=== PATIENT | female | born 1985 | race Caucasian/White ===

== ENCOUNTER 2022-01-29 12:35 | Inpatient (IN) | payer OTHER ==
[~2022-01-29 12:35] MED LIST: Bupivacaine PF 0.5% 30 ML VIAL ONE; Bupivacaine/Epinephrine 0.25% 30 ML VIAL ONE
[2022-01-29 12:55] VITALS: BMI 41.8
[2022-01-29] MEDS ORDERED: Misoprostol 200 MCG TAB PR PRN (13:28)
[2022-01-29] MEDS ORDERED: HYDROcodone/Acetaminophen 5/325 mg Tablet PO PRN ×2 (13:28)
[2022-01-29] MEDS ORDERED: Lidocaine 1% (PF) 30 ML VIAL SC PRN (13:28)
[2022-01-29] MEDS ORDERED: Ibuprofen 800 MG TAB PO PRN (13:28)
[2022-01-29] MEDS ORDERED: Labetalol HCl 100 MG/20 ML VIAL SLOW IVP PRN (13:29)
[2022-01-29] MEDS ORDERED: hydrALAZINE 20 MG/ML VIAL SLOW IVP PRN ×2 (13:29→13:33)
[2022-01-29] MEDS ORDERED: Calcium Gluc 4.6 MEQ/10 ML (100 MG/ML) SLOW IVP PRN ×2 (13:29→13:31)
[2022-01-29] MEDS ORDERED: Lorazepam 2 MG/ML VIAL SLOW IVP PRN ×2 (13:29→13:31)
[2022-01-29] MEDS ORDERED: NS w/ Oxytocin 30 units 500 ML IV SCH ×2 (13:30)
[2022-01-29] MEDS ORDERED: Promethazine HCl 25 MG/ML VIAL IM PRN (13:33)
[2022-01-29] MEDS ORDERED: Acetaminophen 500 MG TAB PO PRN (13:33)
[2022-01-29 13:54] LABS: #Eosinphils 0.1 10x3/uL (0.0-0.5); #Monocytes 0.7 10x3/uL (0.0-1.1); #Neutrophils 7.7 10x3/uL (1.5-8.4); %Basophils 0.4 % (0.0-2.0); %Eosinophils 0.6 % (0.0-6.0); %Lymphocytes 19.8 % (18.0-47.0); %Monocytes 6.6 % (0.0-10.0); %Neutrophils 71.9 % (40.0-75.0); Hemoglobin 12.5 g/dL (12.0-15.5); Mean Corpuscular HGB CONC 35.2 g/dL (32.0-36.0); Mean Corpuscular Hemoglobin 31.6 pg (27.0-33.0); Mean Corpuscular Volume 89.6 fl (81.6-98.3); Mean Platelet Volume 10.8 fl (7.4-10.4); Platelet Count 225 10x3/uL (150-450); RBC Distribution Width 13.2 % (11.5-14.5); Red Blood Cell (RBC) Count 3.96 10x6/uL (3.90-5.03); White Blood Cell (WBC) Count 10.7 10x3/uL (3.5-10.5)
[2022-01-29 14:06] LABS: ALT (SGPT) 17 U/L (8-55); AST (SGOT) 25 U/L (5-34); Albumin 3.3 g/dL (3.5-5.0); Alkaline Phosphatase 135 U/L (40-110); Anion Gap 16 mmol/L (10-20); BUN (Urea Nitrogen) 9 mg/dL (7.0-18.7); Bilirubin, Total 0.3 mg/dL (0.2-1.2); Calc. Creatinine Clearance 178 mL/min (70-130); Calcium 9.1 mg/dL (7.8-10.44); Carbon Dioxide 17 mmol/L (22-29); Chloride 108 mmol/L (98-107); Estimated GFR 101; Globulin 3.1 g/dL (2.4-3.5); Glucose 104 mg/dL (70-105); Potassium 4.4 mmol/L (3.5-5.1); Protein, Total 6.4 g/dL (6.0-8.3); Sodium 137 mmol/L (136-145)
[2022-01-29 14:26] LABS: Hep B Surf Ag Non-Reactive S/CO (NonReactive); Syphilis Antibody Nonreactive (Nonreactive); Syphilis Antibody Index 0.06 S/CO (<1.00 Non-Reactive)
[2022-01-29] MEDS: Labetalol HCl 200 MG TAB PO SCH ×2 (14:39→23:55)
[2022-01-29] MEDS: Lactated Ringer's 1,000 ML IV SCH (14:39)
[2022-01-29 14:41] LABS: HBSAg Index 0.16 S/CO (0-0.99)
[2022-01-29 18:33] LABS: SARS-CoV-2 NAA Rapid Test Not Detected (NotDetected)
[2022-01-29] MEDS ORDERED: Fentanyl 2 mcg/Bup 0.1% Cadd 100 ML ONE (23:36)
[2022-01-30] MEDS ORDERED: diphenhydrAMINE 50 MG/ML VIAL IVP PRN (00:37)
[2022-01-30] MEDS ORDERED: Lactated Ringer's 500 ML IV PRN (00:37)
[2022-01-30] MEDS ORDERED: ePHEDrine Sulfate 50 MG/10 ML VIAL SLOW IVP PRN (00:37)
[2022-01-30] MEDS ORDERED: Ondansetron PF 4 MG/2 ML Vial IVP PRN ×2 (00:37→20:51)
[2022-01-30] MEDS ORDERED: Acetaminophen 325 MG TAB PO PRN (00:37)
[2022-01-30] MEDS ORDERED: Naloxone HCl 0.4 mg/ml Vial IVP PRN ×2 (00:37)
[2022-01-30] MEDS ORDERED: Promethazine HCl 25 MG/ML VIAL IM PRN (00:37)
[2022-01-30] MEDS ORDERED: Moisturizing Cream (Eucerin) 113 GM JAR TOP PRN (00:37)
[2022-01-30] MEDS ORDERED: Communication Order-Pharmacy FS SCH (00:45)
[2022-01-30] MEDS ORDERED: Fentanyl 2 mcg/Bupivacaine 0.1% Cassette 100 ML EPIDURAL SCH (00:45)
[2022-01-30] MEDS: Lactated Ringer's 1,000 ML IV SCH ×4 (07:20→22:39)
[2022-01-30] MEDS: Ondansetron PF 4 MG/2 ML Vial IVP PRN ×2 (08:19→14:28)
[2022-01-30] MEDS: Labetalol HCl 200 MG TAB PO SCH ×3 (08:31→20:57)
[2022-01-30] MEDS ORDERED: Azithromycin 500 MG in Sodium Chloride 0.9% 250 ML 250 ML IVPB SCH (16:00)
[2022-01-30] MEDS ORDERED: Dexmedetomidine 200 MCG/2 ML VIAL ONE (16:16)
[2022-01-30] MEDS ORDERED: Ropivacaine 0.2% HCl/PF 20 ML ONE (16:16)
[2022-01-30] MEDS ORDERED: Ondansetron HCl/PF 4 MG/2 ML Vial IVP PRN (16:20)
[2022-01-30] MEDS ORDERED: Fentanyl 100 MCG/2 ML VIAL SLOW IVP PRN (16:20)
[2022-01-30] MEDS ORDERED: Meperidine HCl/PF 25 MG/ML VIAL SLOW IVP PRN (16:20)
[2022-01-30] MEDS ORDERED: Ketorolac Tromethamine 30 MG/ML VIAL IVP SCH (16:30)
[2022-01-30] MEDS ORDERED: CEFAZOLIN 2 GM VIAL ONE (16:47)
[2022-01-30] MEDS ORDERED: Azithromycin 500 MG VIAL ONE (16:47)
[2022-01-30] MEDS ORDERED: Lidocaine 2% PF 100 mg/5 ml Syringe ONE (16:47)
[2022-01-30] MEDS ORDERED: Famotidine/PF 20 mg/2ml Vial ONE (16:47)
[2022-01-30] MEDS ORDERED: Metoclopramide HCl 10 MG/2 ML VIAL ONE (16:48)
[2022-01-30] MEDS ORDERED: Dexamethasone 4 mg/ml Vial ONE (16:48)
[2022-01-30] MEDS ORDERED: Ondansetron PF 4 MG/2 ML Vial ONE (16:48)
[2022-01-30] MEDS ORDERED: Oxytocin 10 UNITS/ML VIAL ONE ×2 (16:55→18:59)
[2022-01-30] MEDS ORDERED: PHENYLEPHRINE-NS 100 MCG/ML 10 ML SYRINGE ONE (17:18)
[2022-01-30] MEDS ORDERED: Ketorolac Tromethamine 30 MG/ML VIAL ONE (18:07)
[2022-01-30] MEDS ORDERED: diphenhydrAMINE 25 MG CAP PO PRN (20:51)
[2022-01-30] MEDS ORDERED: hydrALAZINE 20 MG/ML VIAL SLOW IVP PRN (20:51)
[2022-01-30] MEDS ORDERED: Boostrix 0.5 ML (Tdap) VIAL IM ONE (20:51)
[2022-01-30] MEDS ORDERED: Bisacodyl 10 MG SUPP PR PRN (20:51)
[2022-01-30] MEDS ORDERED: Lanolin Ointment 7 GM TUBE TOP PRN (20:51)
[2022-01-30] MEDS ORDERED: Zolpidem Tartrate 5 MG TAB PO PRN (20:51)
[2022-01-30] MEDS ORDERED: Misoprostol 200 MCG TAB PR PRN (20:51)
[2022-01-30] MEDS ORDERED: NS w/ Oxytocin 30 units 500 ML IV SCH (20:51)
[2022-01-30] MEDS ORDERED: Ibuprofen 800 MG TAB PO SCH (22:00)
[2022-01-30] MEDS: Docusate 100 MG CAP PO SCH (22:40)
[2022-01-30] MEDS: Ferrous Sulfate 325 MG TAB PO SCH (22:41)
[2022-01-31] MEDS: Ketorolac Tromethamine 30 MG/ML VIAL IVP PRN ×2 (00:45→06:33)
[2022-01-31 05:06] LABS: Hemoglobin 10.3 g/dL (12.0-15.5); Mean Corpuscular HGB CONC 35.3 g/dL (32.0-36.0); Mean Corpuscular Hemoglobin 31.8 pg (27.0-33.0); Mean Corpuscular Volume 90.1 fl (81.6-98.3); Mean Platelet Volume 10.5 fl (7.4-10.4); Platelet Count 165 10x3/uL (150-450); RBC Distribution Width 13.2 % (11.5-14.5); Red Blood Cell (RBC) Count 3.24 10x6/uL (3.90-5.03); White Blood Cell (WBC) Count 19.5 10x3/uL (3.5-10.5)
[2022-01-31] MEDS ORDERED: Fentanyl 250 MCG/5 ML VIAL ONE (06:11)
[2022-01-31] MEDS ORDERED: PROPOFOL 0 ML ONE (06:11)
[2022-01-31] MEDS ORDERED: Oxytocin 10 UNITS/ML VIAL ONE (06:12)
[2022-01-31] MEDS ORDERED: Dexamethasone 4 mg/ml Vial ONE (06:13)
[2022-01-31] MEDS ORDERED: Ondansetron PF 4 MG/2 ML Vial ONE (06:13)
[2022-01-31] MEDS: Lactated Ringer's 1,000 ML IV SCH ×2 (06:47→16:11)
[2022-01-31] MEDS: Docusate 100 MG CAP PO SCH ×2 (09:22→21:18)
[2022-01-31] MEDS: Labetalol HCl 200 MG TAB PO SCH ×2 (09:22→21:18)
[2022-01-31] MEDS: HYDROcodone/Acetaminophen 5/325 mg Tablet PO PRN ×4 (09:23→22:47)
[2022-01-31] MEDS: Prenatal Vitamin 1 TAB PO SCH (09:23)
[2022-01-31] MEDS: Ferrous Sulfate 325 MG TAB PO SCH (09:25)
[2022-01-31] MEDS: Simethicone Chewable 80 MG TAB PO PRN (13:35)
[2022-01-31] MEDS: Ibuprofen 800 MG TAB PO SCH ×2 (13:35→21:18)
[2022-02-01] MEDS: Ibuprofen 800 MG TAB PO SCH ×3 (06:34→21:44)
[2022-02-01] MEDS: Lactated Ringer's 1,000 ML IV SCH ×3 (07:39→20:32)
[2022-02-01] MEDS: Ferrous Sulfate 325 MG TAB PO SCH ×3 (07:40→21:44)
[2022-02-01] MEDS: Docusate 100 MG CAP PO SCH ×2 (08:19→21:44)
[2022-02-01] MEDS: HYDROcodone/Acetaminophen 5/325 mg Tablet PO PRN ×3 (08:19→17:11)
[2022-02-01] MEDS: Labetalol HCl 200 MG TAB PO SCH (08:19)
[2022-02-01] MEDS: Prenatal Vitamin 1 TAB PO SCH (08:19)
[2022-02-01] MEDS ORDERED: Milk Of Magnesia 30 ML UDCUP PO PRN (11:51)
[2022-02-01] MEDS ORDERED: Docusate Calcium (SURFAK) 240 MG CAP PO PRN (11:51)
[2022-02-01] MEDS: Simethicone Chewable 80 MG TAB PO PRN (12:22)
[2022-02-02] MEDS: Ibuprofen 800 MG TAB PO SCH (06:00)
[2022-02-02] MEDS: Lactated Ringer's 1,000 ML IV SCH (06:39)
[2022-02-02 08:09] VITALS: BP 122/58; TEMP 98.1
[2022-02-02] MEDS: Docusate 100 MG CAP PO SCH (08:43)
[2022-02-02] MEDS: Prenatal Vitamin 1 TAB PO SCH (08:43)
[2022-02-02] MEDS: Ferrous Sulfate 325 MG TAB PO SCH (09:28)
[2022-02-02] MEDS: HYDROcodone/Acetaminophen 5/325 mg Tablet PO PRN (11:14)
== END 2022-02-02 12:00 | disposition home or self-care (01) | DRG 787 ==
LOC: CSHLD 12:35 → CSHPP 01-30 21:20
PROVIDERS: ADMIT Obstetrics & Gynecology; ATTEND Obstetrics & Gynecology
PROC: 3E033VJ Introduction of Other Hormone into Peripheral Vein, Percutaneous Approach (ICD-10-PCS; 2022-01-29)
PROC: 10D00Z1 Extraction of Products of Conception, Low, Open Approach (ICD-10-PCS; principal; 2022-01-30)
PROC: 3E0334Z Introduction of Serum, Toxoid and Vaccine into Peripheral Vein, Percutaneous Approach (ICD-10-PCS; 2022-01-30)
DX: O11.4 Pre-existing hypertension with pre-eclampsia, complicating childbirth (principal); O98.52 Other viral diseases complicating childbirth; O10.92 Unspecified pre-existing hypertension complicating childbirth; Z20.822 Contact with and (suspected) exposure to COVID-19; Z3A.37 37 weeks gestation of pregnancy; Z37.0 Single live birth; O26.893 Other specified pregnancy related conditions, third trimester; Z67.11 Type A blood, Rh negative; B00.9 Herpesviral infection, unspecified; Z79.899 Other long term (current) drug therapy; O32.4XX0 Maternal care for high head at term, not applicable or unspecified; O62.1 Secondary uterine inertia; O33.9 Maternal care for disproportion, unspecified; O32.8XX0 Maternal care for other malpresentation of fetus, not applicable or unspecified; O42.02 Full-term premature rupture of membranes, onset of labor within 24 hours of rupture
CPT/HCPCS: 36415; 51702; 80053; 82570; 84156; 84550; 85025; 85027; 85461; 86780; 86850; 86900; 86901; 87340; 90384; 96372; J0456; J0690; J1100; J1885; J2001; J2405; J2590; J2704; J2765; J2795; J3010; J7120; S0020; S0028; U0002